=== PATIENT | male | born 1980 | race Caucasian/White ===

== ENCOUNTER 2016-06-25 13:23 | Inpatient (IN) | payer MEDICAID ==
[~2016-06-25] VITALS: Ht 180.3 cm; Wt 106.3 kg
[~2016-06-25 13:23] MED LIST: ATARAX,VISTARIL50 MG PO; CARBIDOPA/LEVOD1 TA1 PO; HYDR25T PO; ONDANSETRON HYDR4 M1 PO; ZESTRIL40 MG PO; Zestril,Prinivi40 MG PO
[2016-06-25 15:26] LABS: BASO # 0.1 10*3/uL (0.0-0.1); BASO % 0.3 % (0.0-1.0); EOS # 0.2 10*3/uL (0.0-0.4); EOS % 1.2 % (1.0-4.0); HEMATOCRIT 47.8 % (42.0-52.0); HEMOGLOBIN 15.8 g/dl (14.0-18.0); IG # 0.1 10*3/uL (0.0-0.1); LYMPH # 1.9 10*3/uL (1.3-4.4); LYMPH % 12.4 % (27.0-41.0); MEAN CELL VOLUME 87.7 fl (80.0-94.0); MEAN CORPUSCULAR HGB CONC 33.1 g/dl (33.0-37.0); MEAN PLATELET VOLUME 9.2 fl (9.6-12.3); MONO # 0.9 10*3/uL (0.1-1.0); MONO % 5.6 % (3.0-9.0); NEUT # 12.5 10*3/uL (2.3-7.9); NEUT % 80.1 % (47.0-73.0); PLATELET COUNT AUTOMATED 409 10*3/uL (130-400); RED BLOOD COUNT 5.45 10*6/uL (4.50-5.90); RED CELL DISTRI WIDTH 12.6 % (0-14.5); WHITE BLOOD COUNT 15.6 10*3/uL (4.8-10.8)
[2016-06-25 15:27] LABS: BILIRUBIN NEGATIVE (NEGATIVE); BLOOD NEGATIVE (NEGATIVE); CLARITY SL CLOUDY (CLEAR); COLOR YELLOW (YELLOW); GLUCOSE NEGATIVE (NEGATIVE); KETONE NEGATIVE (NEGATIVE); LEUKO ESTERASE NEGATIVE (NEGATIVE); NITRITE NEGATIVE (NEGATIVE); PROTEIN NEGATIVE (NEGATIVE); SPECIFIC GRAVITY 1.015 (1.005-1.030); UROBILINOGEN 0.2 E.U./dl (0.2-1.0)
[2016-06-25 15:34] LABS: INTERNATIONAL NORM RATIO 0.9 (2.0-3.5); PROTHROMBIN TIME 9.8 SECONDS (9.0-12.4)
[2016-06-25 15:35] LABS: URINE AMPHETAMINES < 1000 (1000ng/ml); URINE BARBITURATES < 200 (200ng/ml); URINE COCAINE < 300 (300ng/ml)
[2016-06-25 15:36] LABS: EPITHELIAL CELLS 0-2; RBC 0-2 rbc/hpf (0-2)
[2016-06-25 15:37] LABS: BACTERIA 2+; MUCOUS TRACE; URINE REFLEX COMMENT YES (NO)
[2016-06-25 15:42] LABS: ALKALINE PHOSPHATASE 202 U/L (45-117); BILIRUBIN, TOTAL 0.5 mg/dl (0.2-1.0); BUN 9 mg/dl (7-24); CARBON DIOXIDE 25 mmol/L (21-32); CHLORIDE 108 mmol/L (98-107); EST GLOM FILT AFRICAN AMERICAN > 60 ml/min; GLUCOSE 98 mg/dL (65-99); POTASSIUM 4.6 mmol/L (3.5-5.1); SGOT/AST 40 IU/L (3-35); SGPT/ALT 81 U/L (12-78); SODIUM 141 mmol/L (136-145)
[2016-06-25 16:00] VITALS: BP 148/79
[2016-06-25 20:00] VITALS: BP 136/74
[2016-06-26] VITALS: BP 146/79
[2016-06-26 04:00] VITALS: BP 131/71
[2016-06-26 08:00] VITALS: BP 128/78
[2016-06-26 08:10] LABS: HIV 1+2 AB + HIV1 P24 AG Non Reactive (Non Reactive)
[2016-06-26 09:06] LABS: HEPATITIS C VIRUS ANTIBODY <0.1 s/co (0.0-0.9)
[2016-06-26 12:00] VITALS: BP 122/69
[2016-06-26 16:00] VITALS: BP 139/82
[2016-06-26 20:00] VITALS: BP 142/88
[2016-06-27 04:00] VITALS: BP 138/78
[2016-06-27 06:44] LABS: BASO # 0.1 10*3/uL (0.0-0.1); BASO % 0.6 % (0.0-1.0); EOS # 0.4 10*3/uL (0.0-0.4); EOS % 4.9 % (1.0-4.0); HEMATOCRIT 42.4 % (42.0-52.0); LYMPH # 2.6 10*3/uL (1.3-4.4); LYMPH % 29.3 % (27.0-41.0); MEAN CELL VOLUME 88.7 fl (80.0-94.0); MEAN CORPUSCULAR HGB 29.3 pg (27.0-31.0); MEAN PLATELET VOLUME 9.7 fl (9.6-12.3); MONO # 0.8 10*3/uL (0.1-1.0); MONO % 9.3 % (3.0-9.0); NEUT # 4.9 10*3/uL (2.3-7.9); NEUT % 55.6 % (47.0-73.0); PLATELET COUNT AUTOMATED 320 10*3/uL (130-400); RED BLOOD COUNT 4.78 10*6/uL (4.50-5.90); RED CELL DISTRI WIDTH 12.7 % (0-14.5); WHITE BLOOD COUNT 8.9 10*3/uL (4.8-10.8)
[2016-06-27 12:00] VITALS: BP 146/85
[2016-06-27 16:00] VITALS: BP 153/95
[2016-06-27 20:00] VITALS: BP 150/94
[2016-06-28] VITALS: BP 158/93
[2016-06-28 05:49] LABS: EST GLOM FILT AFRICAN AMERICAN > 60 ml/min
[2016-06-28 06:10] LABS: BASO # 0.1 10*3/uL (0.0-0.1); BASO % 0.5 % (0.0-1.0); EOS # 0.4 10*3/uL (0.0-0.4); EOS % 4.3 % (1.0-4.0); HEMATOCRIT 43.9 % (42.0-52.0); HEMOGLOBIN 14.4 g/dl (14.0-18.0); LYMPH # 2.6 10*3/uL (1.3-4.4); LYMPH % 27.3 % (27.0-41.0); MEAN CELL VOLUME 88.2 fl (80.0-94.0); MEAN CORPUSCULAR HGB 28.9 pg (27.0-31.0); MEAN CORPUSCULAR HGB CONC 32.8 g/dl (33.0-37.0); MEAN PLATELET VOLUME 9.6 fl (9.6-12.3); MONO # 0.7 10*3/uL (0.1-1.0); MONO % 7.4 % (3.0-9.0); NEUT # 5.7 10*3/uL (2.3-7.9); NEUT % 60.2 % (47.0-73.0); PLATELET COUNT AUTOMATED 348 10*3/uL (130-400); RED BLOOD COUNT 4.98 10*6/uL (4.50-5.90); RED CELL DISTRI WIDTH 12.5 % (0-14.5); WHITE BLOOD COUNT 9.5 10*3/uL (4.8-10.8)
[2016-06-28 08:00] VITALS: BP 126/80
[2016-06-28 12:00] VITALS: BP 128/75
[2016-06-28] MEDS ORDERED: ZOFRAN4 MG PO (12:49)
[2016-06-28] MEDS ORDERED: CARBIDOPA/LEVOD1 TA1 PO (12:49)
[2016-06-28] MEDS ORDERED: ATARAX,VISTARIL50 MG PO (12:49)
== END 2016-06-28 13:59 | disposition home or self-care (01) | DRG 897 ==
LOC: 5E 13:23
PROVIDERS: Internal Medicine; Internal Medicine Hospice and Palliative Medicine
DX: F11.23 Opioid dependence with withdrawal (principal); R65.10 Systemic inflammatory response syndrome (SIRS) of non-infectious origin without acute organ dysfunction; I10 Essential (primary) hypertension; F41.9 Anxiety disorder, unspecified; G25.81 Restless legs syndrome; L05.91 Pilonidal cyst without abscess; Z82.49 Family history of ischemic heart disease and other diseases of the circulatory system; Z82.5 Family history of asthma and other chronic lower respiratory diseases

== ENCOUNTER 2016-12-13 21:22 | Inpatient (IN) | payer OTHER ==
[~2016-12-13] VITALS: Ht 180.3 cm; Wt 112.5 kg
[~2016-12-13 21:22] MED LIST changes: +ZOFRAN4 MG PO
[2016-12-13 21:24] VITALS: BP 143/91
[2016-12-13] MEDS ORDERED: LISINOPRIL40 MG PO (21:35)
[2016-12-13] MEDS ORDERED: HYDR25T PO (21:43)
[2016-12-13] MEDS ORDERED: LIPITOR10 MG PO (21:43)
[2016-12-13 21:58] LABS: BASO # 0.1 10*3/uL (0.0-0.1); BASO % 0.4 % (0.0-1.0); EOS # 0.4 10*3/uL (0.0-0.4); EOS % 3.1 % (1.0-4.0); HEMATOCRIT 40.5 % (42.0-52.0); HEMOGLOBIN 14.1 g/dl (14.0-18.0); LYMPH # 2.9 10*3/uL (1.3-4.4); LYMPH % 21.8 % (27.0-41.0); MEAN CELL VOLUME 90.4 fl (80.0-94.0); MEAN CORPUSCULAR HGB 31.5 pg (27.0-31.0); MEAN CORPUSCULAR HGB CONC 34.8 g/dl (33.0-37.0); MEAN PLATELET VOLUME 9.5 fl (9.6-12.3); MONO # 0.8 10*3/uL (0.1-1.0); NEUT # 9.1 10*3/uL (2.3-7.9); NEUT % 68.5 % (47.0-73.0); PLATELET COUNT AUTOMATED 352 10*3/uL (130-400); RED BLOOD COUNT 4.48 10*6/uL (4.50-5.90); RED CELL DISTRI WIDTH 11.9 % (0-14.5); WHITE BLOOD COUNT 13.3 10*3/uL (4.8-10.8)
[2016-12-13 22:10] LABS: BUN 10 mg/dl (7-24); CARBON DIOXIDE 25 mmol/L (21-32); CHLORIDE 105 mmol/L (98-107); EST GLOM FILT AFRICAN AMERICAN > 60 ml/min; GLUCOSE 126 mg/dL (65-99); POTASSIUM 3.3 mmol/L (3.5-5.1); SODIUM 141 mmol/L (136-145)
[2016-12-13 22:40] LABS: BILIRUBIN 1+ (NEGATIVE); BLOOD NEGATIVE (NEGATIVE); CLARITY SL CLOUDY (CLEAR); COLOR YELLOW (YELLOW); GLUCOSE NEGATIVE (NEGATIVE); KETONE TRACE (NEGATIVE); LEUKO ESTERASE NEGATIVE (NEGATIVE); NITRITE NEGATIVE (NEGATIVE); PH 5.5 (5.0-9.0); PROTEIN TRACE (NEGATIVE); SPECIFIC GRAVITY >= 1.030 (1.005-1.030)
[2016-12-13 22:51] LABS: BACTERIA 1+; CALCIUM OXALATE CRYSTALS 2+; EPITHELIAL CELLS 0-2; URINE REFLEX COMMENT NO (NO)
[2016-12-13 22:55] LABS: URINE AMPHETAMINES < 1000 (1000ng/ml); URINE BARBITURATES < 200 (200ng/ml); URINE COCAINE > 300 (300ng/ml)
[2016-12-13 23:22] LABS: PROTHROMBIN TIME 10.9 SECONDS (9.0-12.4)
[2016-12-13 23:25] VITALS: BP 128/73
[2016-12-14] VITALS: BP 142/71
[2016-12-14 04:00] VITALS: BP 119/73
[2016-12-14 08:00] VITALS: BP 128/71
[2016-12-14 12:00] VITALS: BP 146/79
[2016-12-14 16:00] VITALS: BP 116/72
[2016-12-14 20:00] VITALS: BP 124/70
[2016-12-15] VITALS: BP 118/68
[2016-12-15 06:11] LABS: BASO # 0.1 10*3/uL (0.0-0.1); BASO % 0.7 % (0.0-1.0); EOS # 0.5 10*3/uL (0.0-0.4); EOS % 6.1 % (1.0-4.0); HEMATOCRIT 38.7 % (42.0-52.0); HEMOGLOBIN 13.1 g/dl (14.0-18.0); LYMPH # 3.1 10*3/uL (1.3-4.4); LYMPH % 35.1 % (27.0-41.0); MEAN CELL VOLUME 91.7 fl (80.0-94.0); MEAN CORPUSCULAR HGB CONC 33.9 g/dl (33.0-37.0); MEAN PLATELET VOLUME 9.7 fl (9.6-12.3); MONO # 0.9 10*3/uL (0.1-1.0); NEUT # 4.3 10*3/uL (2.3-7.9); NEUT % 47.9 % (47.0-73.0); PLATELET COUNT AUTOMATED 280 10*3/uL (130-400); RED BLOOD COUNT 4.22 10*6/uL (4.50-5.90); RED CELL DISTRI WIDTH 11.9 % (0-14.5); WHITE BLOOD COUNT 8.9 10*3/uL (4.8-10.8)
[2016-12-15 06:49] LABS: CHLORIDE 109 mmol/L (98-107); SODIUM 145 mmol/L (136-145)
[2016-12-15 07:50] LABS: BUN 15 mg/dl (7-24); CARBON DIOXIDE 26 mmol/L (21-32); EST GLOM FILT AFRICAN AMERICAN > 60 ml/min; GLUCOSE 108 mg/dL (65-99)
[2016-12-15 08:00] VITALS: BP 151/96
[2016-12-15 12:00] VITALS: BP 120/70
[2016-12-15 16:00] VITALS: BP 130/82
[2016-12-15 20:00] VITALS: BP 137/81
[2016-12-16] VITALS: BP 148/76
[2016-12-16 08:00] VITALS: BP 119/73
[2016-12-16 12:00] VITALS: BP 131/93
[2016-12-16] MEDS ORDERED: ZOFRAN 4 MG ED2 TAB PO (13:28)
[2016-12-16] MEDS ORDERED: ATARAX,VISTARIL50 MG PO (13:28)
[2016-12-17 10:11] LABS: HEPATITIS C VIRUS ANTIBODY >11.0 s/co (0.0-0.9)
== END 2016-12-16 15:15 | disposition home or self-care (01) | DRG 897 ==
LOC: ED 21:22 → EDHOLD 22:23 → 5E 22:23
PROVIDERS: Internal Medicine; Internal Medicine Hospice and Palliative Medicine; Student in an Organized Health Care Education/Training Program
DX: F11.23 Opioid dependence with withdrawal (principal); R65.10 Systemic inflammatory response syndrome (SIRS) of non-infectious origin without acute organ dysfunction; E87.6 Hypokalemia; F19.10 Other psychoactive substance abuse, uncomplicated; I10 Essential (primary) hypertension; E66.9 Obesity, unspecified; M47.892 Other spondylosis, cervical region; F41.9 Anxiety disorder, unspecified; F14.10 Cocaine abuse, uncomplicated; Z71.6 Tobacco abuse counseling; Z82.49 Family history of ischemic heart disease and other diseases of the circulatory system; Z83.6 Family history of other diseases of the respiratory system; Z79.899 Other long term (current) drug therapy; Z68.34 Body mass index [BMI] 34.0-34.9, adult

== ENCOUNTER 2020-02-08 17:06 | Inpatient (IN) | payer OTHER ==
[~2020-02-08] VITALS: Ht 182.8 cm; Wt 95.3 kg
[~2020-02-08 17:06] MED LIST changes: +AMLODIPINE BESYL5 MG PO; +ATORVASTATIN CA20 M1 PO; +HYDROCHLOROTHIA25 M1 PO; +LIPITOR10 MG PO; +LISINOPRIL40 MG PO; +METHOCARBAMOL750 M1 PO; +ROPINIROLE HYD0.5 MG PO; +ZOFRAN 4 MG ED2 TAB PO
[2020-02-08 17:12] VITALS: BP 134/67
[2020-02-08 17:40] LABS: BASO % 0.3 % (0.0-1.0); EOS # 0.4 10*3/uL (0.0-0.4); EOS % 3.2 % (1.0-4.0); HEMATOCRIT 44.6 % (42.0-52.0); LYMPH # 3.1 10*3/uL (1.3-4.4); MEAN CELL VOLUME 91.2 fl (80.0-94.0); MEAN CORPUSCULAR HGB 30.3 pg (27.0-31.0); MEAN CORPUSCULAR HGB CONC 33.2 g/dl (33.0-37.0); MEAN PLATELET VOLUME 9.1 fl (9.6-12.3); NEUT # 6.6 10*3/uL (2.3-7.9); NEUT % 59.3 % (47.0-73.0); PLATELET COUNT AUTOMATED 335 10*3/uL (130-400); RED BLOOD COUNT 4.89 10*6/uL (4.50-5.90); WHITE BLOOD COUNT 11.1 10*3/uL (4.8-10.8)
[2020-02-08 17:57] LABS: ALBUMIN 3.6 gm/dl (3.1-4.5); ALKALINE PHOSPHATASE 145 U/L (45-117); BUN 11 mg/dl (7-24); CHLORIDE 108 mmol/L (98-107); CREATININE 0.81 mg/dL (0.70-1.30); SGOT/AST 26 IU/L (3-35); SGPT/ALT 47 U/L (12-78); SODIUM 140 mmol/L (136-145); TOTAL PROTEIN 7.1 gm/dL (6.4-8.2)
[2020-02-08 17:57] LABS: BILIRUBIN NEGATIVE (NEGATIVE); CLARITY SL CLOUDY (CLEAR); COLOR YELLOW (YELLOW); GLUCOSE NEGATIVE (NEGATIVE); KETONE TRACE (NEGATIVE)
[2020-02-08 17:58] LABS: BLOOD NEGATIVE (NEGATIVE); LEUKO ESTERASE NEGATIVE (NEGATIVE); NITRITE NEGATIVE (NEGATIVE); SPECIFIC GRAVITY 1.025 (1.005-1.030); UROBILINOGEN 0.2 E.U./dl (0.2-1.0)
[2020-02-08 17:59] LABS: ACETAMINOPHEN (TYLENOL) < 5.0 ug/ml (10-30); ETHYL ALCOHOL < 3.0 mg/dl (<3)
[2020-02-08 18:05] LABS: BACTERIA 4+; EPITHELIAL CELLS 0-2; RBC 0-2 rbc/hpf (0-2); URINE AMPHETAMINES < 1000 (1000ng/ml); URINE BARBITURATES < 200 (200ng/ml); URINE BENZODIAZEPINES > 200 (200ng/ml); URINE CANNABINOIDS (THC) < 50 (50ng/ml); URINE COCAINE > 300 (300ng/ml); URINE METHADONE < 300 (300ng/ml); URINE OPIATES > 300 (300ng/ml); WBC 0-2 wbc/hpf (0-5)
[2020-02-08 18:07] LABS: URINE PHENCYCLIDINE < 25 (25ng/ml)
[2020-02-08 19:40] VITALS: BP 162/113
--- NOTE | 2020-02-08 19:40 | NUR ---
A 40, admitted to , under the services of NORAH Parikh DO with a diagnosis of SUBSTANCE ABUSE. Chief complaint is SUBSTANCE ABUSE. Patient arrived via bed from ER. Monitor applied. Initial assessment completed. Vital signs taken and recorded. NORAH PARIKH DO notified of admission to the unit. Orders received. See assessment for past medical history, medications and allergies. Patient and/or family oriented to unit. [facility]. Clothing/patient valuable form completed. [facility]
--- NOTE | 2020-02-08 19:55 | NUR ---
SECURITY IN TO COLLECT PT BELONGINGS
[2020-02-08] MEDS ORDERED: LISINOPRIL20 MG PO (20:07)
--- NOTE | 2020-02-08 20:08 | NUR ---
NOTIFIED DR OCHOA OF UPDATED MED LIST
[2020-02-08 21:18] VITALS: BP 158/94
--- NOTE | 2020-02-08 21:20 | NUR ---
DR OCHOA ON THE FLOOR AND NOTIFIED OF ELEVATED BP, STATES TO ADD ONE TIME DOSE LISINOPRIL PO 10 MG. WILL ADD ORDER
--- NOTE | 2020-02-08 22:02 | NUR ---
PT STATES THAT HE DOES NOT WANT TO TAKE HIS LIBRIUM, IT MADE HIM FEEL "VERY WERID AND EMTIONAL". NOTIFIED DR OCHOA, HE SAID TO JUST DC THE ORDER
[2020-02-09] VITALS: BP 164/104
--- NOTE | 2020-02-09 00:09 | NUR ---
CALLED DR OCHOA FOR BP 164/104, HE WILL ADD ORDERS NEEDED
[2020-02-09 02:18] VITALS: BP 169/108
--- NOTE | 2020-02-09 02:49 | NUR ---
PRN VISTARIL PO GIVEN FOR COMPLAINTS OF ANXIETY. WILL MONITOR FOR EFFECTIVENESS
--- NOTE | 2020-02-09 02:50 | NUR ---
PRN TRAZODONE PO GIVEN FOR COMPLAINTS OF INSOMNIA, WILL MONITOR FOR EFFECTIVENESS.
--- NOTE | 2020-02-09 03:30 | NUR ---
IN TO ASSESS EFFECTIVENESS OF TRAZODONE AND VISTARIL, PT SLEEPING. WILL CONTINUE TO MONITOR
--- NOTE | 2020-02-09 07:00 | NUR ---
ARRIVED ON SHIFT, REPORT RECEIVED FROM OFFGOING NURSE, ASSUMED CARE OF PATIENT.
--- NOTE | 2020-02-09 07:30 | NUR ---
INTRODUCED SELF TO PATIENT, BED IN LOW POSITION, WHEEL LOCKS ENGAGED, SIDE RAILS UP X 2 FOR TURNING AND REPOSITIONING, CALL LIGHT WITHIN REACH, NO NEEDS VOICED AT THIS TIME, WHITE BOARD UPDATED.
--- NOTE | 2020-02-09 07:37 | NUR ---
Shift chart check completed.
--- NOTE | 2020-02-09 07:44 | NUR ---
SPOKE WITH DR. MEDRANO TO CLARIFY MONITOR ORDER FOR PATIENT HE IS MED SURG, PER DR. MEDRANO OK TO DC
[2020-02-09 08:00] VITALS: BP 153/98
[2020-02-09 12:00] VITALS: BP 159/96
[2020-02-09 16:00] VITALS: BP 155/90
--- NOTE | 2020-02-09 19:20 | NUR ---
REPORT RECEIVED FROM SANTANA VO. PT SLEEPING AT THIS TIME. RESPIRATIONS EASY AND UNLABORED. CALL LIGHT IN REACH
[2020-02-09 20:00] VITALS: BP 164/104
[2020-02-10] VITALS: BP 172/100
--- NOTE | 2020-02-10 00:14 | NUR ---
PT GIVEN ROBAXIN, VISTARIL, AND TRAZODONE FOR COMPLAINTS OF INSOMNIA AND ACHES. WILL MONITOR
--- NOTE | 2020-02-10 01:00 | NUR ---
PER PT VISTARIL AND ROBAXIN EFFECTIVE, TRAZODONE INEFFECTIVE. PT REFUSING 2ND DOSE. NO OTHER COMPLAINTS AT THIS TIME.
--- NOTE | 2020-02-10 03:00 | NUR ---
PT WATCHING TV AT THIS TIME. NO COMPLAINTS. CALL LIGHT IN REACH
--- NOTE | 2020-02-10 04:40 | NUR ---
TYLENOL GIVEN PER ORDER FOR COMPLAINTS OF ACHES. WILL MONITOR
--- NOTE | 2020-02-10 05:40 | NUR ---
PER PT, TYLENOL HELPED ACHES.
--- NOTE | 2020-02-10 07:00 | NUR ---
ARRIVED ON SHIFT, REPORT RECEIVED FROM OFFGOING NURSE, ASSUMED CARE OF PATIENT.
--- NOTE | 2020-02-10 07:21 | NUR ---
Shift chart check completed.
--- NOTE | 2020-02-10 07:33 | NUR ---
INTRODUCED SELF TO PATIENT, BED IN LOW POSITION, WHEEL LOCKS ENGAGED, CALL LIGHT WITHIN REACH, NO NEEDS VOICED AT THIS TIME. WHITE BOARD UPDATED.
[2020-02-10 08:00] VITALS: BP 160/98
--- NOTE | 2020-02-10 08:52 | NUR ---
PATIENT C/O ABDOMINAL DISCOMFORT MEDICATED WITH BENTYL ORDERED PRN.
--- NOTE | 2020-02-10 09:49 | NUR ---
FOLLOW UP ON BENTYL GIVEN X 1 HOUR AGO, EFFECTIVE PER PATIENT, NO ABDOMINAL CRAMPS AT THIS TIME.
--- NOTE | 2020-02-10 11:28 | NUR ---
PATIENT C/O OF FEELING ANXIOUS, HAVING MUSCLE ACHES AND JITTERY LEGS MEDICATED WITH, ROBAXIN, REQUIP AND VISTRAL ORDERED PRN.
[2020-02-10 12:00] VITALS: BP 152/85
--- NOTE | 2020-02-10 12:28 | NUR ---
PATIENT REPORTS GOOD RELEIF FROM VISTRAL, REQUIP AND ROBAXIN, NO OTHER NEEDS VOICED AT THIS TIME.
[2020-02-10 16:00] VITALS: BP 145/88
--- NOTE | 2020-02-10 19:20 | NUR ---
REPORT RECEIVED. PT ASLEEP AT THIS TIME. RESPIRATIONS EASY. CALL LIGHT IN REACH
[2020-02-10 20:00] VITALS: BP 160/97
--- NOTE | 2020-02-10 21:30 | NUR ---
PT SLEEPING AT THIS TIME
--- NOTE | 2020-02-10 23:14 | NUR ---
ROBAXIN, VISTARIL AND TRAZODONE GIVEN FOR COMPLAINTS OF INSOMNIA, ANXIETY AND MUSCLE CRAMPS. WILL MONITOR
[2020-02-11] VITALS: BP 152/98
--- NOTE | 2020-02-11 00:07 | NUR ---
PRN MEDICATIONS APPEAR EFFECTIVE. PT LYING IN BED WITH EYES CLOSED.
--- NOTE | 2020-02-11 03:00 | NUR ---
PT AWAKE AT THIS TIME. STATES "I WORK 3RD SHIFT IM USED TO BEING AWAKE ALL NIGHT" VOICES NO COMPLAINTS, CALL LIGHT IN REACH
--- NOTE | 2020-02-11 06:00 | NUR ---
PT LYING IN BED. CALL LIGHT IN REACH
[2020-02-11 06:05] LABS: BASO % 0.4 % (0.0-1.0); EOS # 0.3 10*3/uL (0.0-0.4); EOS % 2.7 % (1.0-4.0); LYMPH # 2.7 10*3/uL (1.3-4.4); MEAN CELL VOLUME 90.9 fl (80.0-94.0); MEAN CORPUSCULAR HGB 30.3 pg (27.0-31.0); MEAN CORPUSCULAR HGB CONC 33.3 g/dl (33.0-37.0); MEAN PLATELET VOLUME 9.5 fl (9.6-12.3); MONO # 0.9 10*3/uL (0.1-1.0); MONO % 8.3 % (3.0-9.0); NEUT # 6.9 10*3/uL (2.3-7.9); NEUT % 63.3 % (47.0-73.0); PLATELET COUNT AUTOMATED 330 10*3/uL (130-400); RED BLOOD COUNT 4.95 10*6/uL (4.50-5.90); RED CELL DISTRI WIDTH 11.8 % (0-14.5)
[2020-02-11 06:20] LABS: CREATININE 0.65 mg/dL (0.70-1.30)
--- NOTE | 2020-02-11 07:00 | NUR ---
ARRIVED ON SHIFT, RECEIVED REPORT FROM OFFGOING NURSE, ASSUMED CARE OF PATIENT.
[2020-02-11 08:00] VITALS: BP 164/88
--- NOTE | 2020-02-11 09:25 | NUR ---
PATIENT C/O FEELING ANXIOUS, MEDICATED WITH VISTRAL AT THIS TIME.
--- NOTE | 2020-02-11 10:21 | NUR ---
PATIENT REPORTS GOOD RELIEF FROM VISTRAL GIVEN X 1 HOUR AGO.
[2020-02-11 12:00] VITALS: BP 158/100
[2020-02-11 16:00] VITALS: BP 152/91
--- NOTE | 2020-02-11 19:09 | NUR ---
CALL PLACED TO [facility] FLORES VARGAS ADVISED OF PATIENTS BLOOD PRESSURE REMAINING ELEVATED DESPITE RECENT MED CHANGES.
--- NOTE | 2020-02-11 19:20 | NUR ---
REPORT RECEIVED. PT SLEEPING. NO COMPLAINTS, CALL LIGHT IN REACH
[2020-02-11 20:00] VITALS: BP 145/104
--- NOTE | 2020-02-11 21:00 | NUR ---
PT SLEEPING AT THIS TIME
[2020-02-11 21:13] VITALS: BP 148/98
[2020-02-12] VITALS: BP 155/98
--- NOTE | 2020-02-12 | NUR ---
PT AWAKE AT THIS TIME WATCHING TV. NO COMPLAINTS VOICED, CALL LIGHT IN REACH
--- NOTE | 2020-02-12 03:00 | NUR ---
PT WATCHING TV. VOICES NO COMPLAINTS, CALL LIGHT IN REACH
--- NOTE | 2020-02-12 07:30 | NUR ---
PT RESTING IN BED. VOICES NO CONCERS. RESPS EASY AND NON LABORED. NO S/S OF DISTRESS NOTED. VSS. WHITE BOARD UPDAYED. POC DISCUSSED W PT. STATES HE WANTS TO LEAVE TODAY. A/O X3. CALL LIGHT WITHIN REACH.
[2020-02-12 08:00] VITALS: BP 161/102
[2020-02-12] MEDS ORDERED: THERA TABLET400 MCG PO (08:54)
[2020-02-12] MEDS ORDERED: ZOFRAN4 MG PO (08:54)
[2020-02-12] MEDS ORDERED: ROPINIROLE HYD0.5 MG PO (08:54)
[2020-02-12] MEDS ORDERED: VITAMIN B-1100 M1 PO (08:54)
[2020-02-12] MEDS ORDERED: NATURE'S BLEND F1 MG PO (08:54)
[2020-02-12] MEDS ORDERED: ATARAX,VISTARIL50 MG PO (08:54)
[2020-02-12] MEDS ORDERED: AMLODIPINE BESYL5 MG PO (08:54)
--- NOTE | 2020-02-12 09:36 | NUR ---
Discharge instructions reviewed with patient/family. Patient receptive and verbalizes understanding. Follow-up care arranged. Written instructions given to patient/family. [place],TONI The Discharge Plan/Instructions have been completed.
== END 2020-02-12 09:35 | disposition home or self-care (01) | DRG 773 ==
LOC: ED 17:06 → 4E 18:39 → EDHOLD 18:39 → 4E 19:07
PROVIDERS: Nurse Practitioner Family; ADMIT Family Medicine
DX: F11.23 Opioid dependence with withdrawal (principal); F14.10 Cocaine abuse, uncomplicated; F13.10 Sedative, hypnotic or anxiolytic abuse, uncomplicated; F19.10 Other psychoactive substance abuse, uncomplicated; F41.9 Anxiety disorder, unspecified; D72.829 Elevated white blood cell count, unspecified; E78.5 Hyperlipidemia, unspecified; I10 Essential (primary) hypertension; F17.200 Nicotine dependence, unspecified, uncomplicated; E87.8 Other disorders of electrolyte and fluid balance, not elsewhere classified; R73.9 Hyperglycemia, unspecified; E66.3 Overweight; Z71.6 Tobacco abuse counseling; Z82.49 Family history of ischemic heart disease and other diseases of the circulatory system; Z83.6 Family history of other diseases of the respiratory system; Z81.8 Family history of other mental and behavioral disorders; Z79.899 Other long term (current) drug therapy; Z68.28 Body mass index [BMI] 28.0-28.9, adult